=== PATIENT | male | born 1945 | race Caucasian/White ===

== ENCOUNTER 2017-11-26 13:47 | Observation (INO) | payer MEDICARE ==
[2017-11-26 14:27] LABS: ABS Basophils 0.1 10^3/ul (0-0.2); ABS Eosinophils 0 10^3/ul (0-0.6); ABS Lymphocytes 1.7 10^3/ul (1.0-4.8); ABS Monocytes 0.8 10^3/ul (0-0.8); ABS Neutrophils 7.2 10^3/ul (1.5-7.7); ABS Nucleated RBC 0 10^3/ul; Eosinophil % 0.5 % (0-6); Hematocrit 43 % (42-52); Hemoglobin 14.6 g/dl (14.0-18.0); Lymphocyte % 17.2 % (25-47); Mean Corpuscular HGB Conc 34 g/dl (31-36); Mean Corpuscular Hemoglobin 33 pg (27-31); Mean Corpuscular Volume 97 fL (80-94); Mean Platelet Volume 7.6 um3 (7.4-10.4); Nucleated Red Blood Cells % 0; Platelet Count 297 10^3/ul (150-450); Red Blood Count 4.37 10^6/ul (4.00-5.40); Red Cell Distribution Width 13 % (10.5-15); White Blood Count 9.8 10^3/ul (3.5-10.8)
[2017-11-26 14:37] LABS: INR 0.89 (0.77-1.02)
[2017-11-26 14:48] LABS: EGFR Non-African American 70.6 (>60)
--- NOTE | 2017-11-26 14:50 | RAD ---
INDICATION: Short of breath COMPARISON: None TECHNIQUE: An AP portable view obtained at 1420 hours is submitted. FINDINGS: Bones/Soft Tissues: There are no acute bony findings. Cardiomediastinal: The cardiomediastinal silhouette is normal. Lungs: There are no infiltrates. Pleura: There are no pleural effusions. Other: None IMPRESSION: NORMAL CHEST.
[2017-11-26] MEDS ORDERED: Al Hydrox/Mg Hydrox/Simet LIQ* 30 ML UDC PO PRN (16:57)
[2017-11-26] MEDS ORDERED: Acetaminophen TAB* 325 MG PO PRN (16:57)
[2017-11-26] MEDS ORDERED: Enoxaparin(*) 40 MG/0.4 ML SYR SUBCUT SCH (17:00)
[2017-11-26] MEDS ORDERED: Magnesium Sulfate 2 GM IV* 2 GM/50 ML BAG IVPB ONE (17:21)
--- NOTE | 2017-11-26 17:57 | ED ---
Milton Alas Tiffany, scribed for Damian Shearer MD on 11/26/17 at 1412 . Palpitations / Dysrhythmia - HPI Summary HPI Summary: 72 year old M referred from PMD to [facility] complains of heart fluttering since one week ago. Symptoms aggravated by walking. Symptoms alleviated by nothing. Patient reports dizziness, shortness of breath. Denies chest pain, chest pressure. - History of Current Complaint Chief Complaint: EDDysrhythmPalp Time Seen by Provider: 11/26/17 14:02 Hx Obtained From: Patient Onset/Duration: Lasting Weeks - 1, Still Present Aggravating: Other - walking Alleviating: Nothing - Allergy/Home Medications Allergies/Adverse Reactions: Allergies Allergy/AdvReac Type Severity Reaction Status Date / Time No Known Allergies Allergy Verified 11/26/17 13:51 Home Medications: Home Medications Aspirin EC TAB* [Ecotrin EC Low Dose 81 MG*] 81 mg PO DAILY 11/26/17 [History Confirmed 11/26/17] Felodipine (NF) [Plendil (NF)] 10 mg PO DAILY 11/26/17 [History Confirmed ] Losartan TAB* [Cozaar TAB*] 100 mg PO DAILY 11/26/17 [History Confirmed 11/26/17 ] Simvastatin TAB(NF) [Zocor(NF)] 20 mg PO DAILY 11/26/17 [History Confirmed 11/26] Ubidecarenone [Co Q-10] 300 mg PO DAILY 11/26/17 [History Confirmed 11/26/17] PMH/Surg Hx/FS Hx/Imm Hx Previously Healthy: No Cardiovascular History: Reports: Hx Hypercholesterolemia, Hx Hypertension Respiratory History: Denies: Hx Chronic Obstructive Pulmonary Disease (COPD) Sensory History: Denies: Hx Deafness EENT History: Denies: Hx Deafness - Surgical History Surgery Procedure, Year, and Place: torn meniscus bilateral knees Infectious Disease History: No Infectious Disease History: Denies: Traveled Outside the [place] in Last 30 Days - Family History Known Family History: Positive: Cardiac Disease - open heart surgery father, Diabetes - brother and grandmother Review of Systems Positive: Other - heart fluttering; NEGATIVE: chest pressure. Negative: Chest Pain Positive: Shortness Of Breath Neurological: Other - dizziness All Other Systems Reviewed And Are Negative: Yes Physical Exam - Summary Physical Exam Summary: Appearance: The patient is well-nourished in no acute distress and in no acute pain. Skin: The skin is warm and dry and skin color reflects adequate perfusion. HEENT: The head is normocephalic and atraumatic. The pupils are equal and reactive. The conjunctivae are clear and without drainage. Nares are patent and without drainage. Mouth reveals moist mucous membranes and the throat is without erythema and exudate. The external ears are intact. The ear canals are patent and without drainage. The tympanic membranes are intact. Neck: The neck is supple with full range of motion and non-tender. There are no carotid bruits. There is no neck vein distension. Respiratory: Chest is non-tender. Lungs are clear to auscultation and breath sounds are symmetrical and equal. Cardiovascular: Heart is regular rate and rhythm. There is no murmur or rub auscultated. There is no peripheral edema and pulses are symmetrical and equal. Abdomen: The abdomen is soft and non-tender. There are normal bowel sounds heard in all four quadrants and there is no organomegaly palpated. Musculoskeletal: There is no back tenderness noted. Extremities are non-tender with full range of motion. There is good capillary refill. There is no peripheral edema or calf tenderness elicited. Neurological: Patient is alert and oriented to person, place and time. The patient has symmetrical motor strength in all four extremities. Cranial nerves are grossly intact. Deep tendon reflexes are symmetrical and equal in all four extremities. Psychiatric: The patient has an appropriate affect and does not exhibit any anxiety or depression. Triage Information Reviewed: Yes Vital Signs On Initial Exam: Initial Vitals Temp Pulse Resp BP Pulse Ox 97.2 F 76 20 122/74 98 11/26/17 13:48 11/26/17 13:48 11/26/17 13:48 11/26/17 13:48 11/26/17 13:48 Vital Signs Reviewed: Yes Diagnostics - Vital Signs Vital Signs Temp Pulse Resp BP Pulse Ox 11/26/17 13:48 97.2 F 76 20 122/74 98 - Laboratory Lab Results: Lab Results 11/26/17 11/26/17 11/26/17 Range/Units 14:17 14:17 14:17 WBC 9.8 (3.5-10.8) 10^3/ul RBC 4.37 (4.00-5.40) 10^6/ul Hgb 14.6 (14.0-18.0) g/dl Hct 43 (42-52) % MCV 97 H (80-94) fL MCH 33 H (27-31) pg MCHC 34 (31-36) g/dl RDW 13 (10.5-15) % Plt Count 297 (150-450) 10^3/ul MPV 7.6 (7.4-10.4) um3 Neut % (Auto) 73.4 (38-83) % Lymph % (Auto) 17.2 L (25-47) % Benton % (Auto) 8.2 H (0-7) % Eos % (Auto) 0.5 (0-6) % Baso % (Auto) 0.7 (0-2) % Absolute Neuts (auto) 7.2 (1.5-7.7) 10^3/ul Absolute Lymphs (auto) 1.7 (1.0-4.8) 10^3/ul Absolute Monos (auto) 0.8 (0-0.8) 10^3/ul Absolute Eos (auto) 0 (0-0.6) 10^3/ul Absolute Basos (auto) 0.1 (0-0.2) 10^3/ul Absolute Nucleated RBC 0 10^3/ul Nucleated RBC % 0 INR (Anticoag Therapy) (0.77-1.02) D-Dimer, Quantitative (Less Than 230) ng/mL Sodium 137 (135-145) mmol/L Potassium 4.0 (3.5-5.0) mmol/L Chloride 103 (101-111) mmol/L Carbon Dioxide 22 (22-32) mmol/L Anion Gap 12 H (2-11) mmol/L BUN 15 (6-24) mg/dL Creatinine 1.04 (0.67-1.17) mg/dL Est GFR ( Amer) 85.4 (>60) Est GFR (Non-Af Amer) 70.6 (>60) BUN/Creatinine Ratio 14.4 (8-20) Glucose 127 H (70-100) mg/dL Lactic Acid 1.6 (0.5-2.0) mmol/L Calcium 9.3 (8.6-10.3) mg/dL Magnesium 1.6 L (1.9-2.7) mg/dL Total Bilirubin 0.60 (0.2-1.0) mg/dL AST 36 (13-39) U/L ALT 22 (7-52) U/L Alkaline Phosphatase 43 (34-104) U/L Troponin I 0.00 (<0.04) ng/mL C-Reactive Protein 1.26 (<8.01) mg/L B-Natriuretic Peptide ( - 100) pg/mL Total Protein 7.4 (6.4-8.9) g/dL Albumin 4.1 (3.2-5.2) g/dL Globulin 3.3 (2-4) g/dL Albumin/Globulin Ratio 1.2 (1-3) TSH 2.88 (0.34-5.60) mcIU/mL 11/26/17 11/26/17 Range/Units 14:17 14:17 WBC (3.5-10.8) 10^3/ul RBC (4.00-5.40) 10^6/ul Hgb (14.0-18.0) g/dl Hct (42-52) % MCV (80-94) fL MCH (27-31) pg MCHC (31-36) g/dl RDW (10.5-15) % Plt Count (150-450) 10^3/ul MPV (7.4-10.4) um3 Neut % (Auto) (38-83) % Lymph % (Auto) (25-47) % Benton % (Auto) (0-7) % Eos % (Auto) (0-6) % Baso % (Auto) (0-2) % Absolute Neuts (auto) (1.5-7.7) 10^3/ul Absolute Lymphs (auto) (1.0-4.8) 10^3/ul Absolute Monos (auto) (0-0.8) 10^3/ul Absolute Eos (auto) (0-0.6) 10^3/ul Absolute Basos (auto) (0-0.2) 10^3/ul Absolute Nucleated RBC 10^3/ul Nucleated RBC % INR (Anticoag Therapy) 0.89 (0.77-1.02) D-Dimer, Quantitative < 200 (Less Than 230) ng/mL Sodium (135-145) mmol/L Potassium (3.5-5.0) mmol/L Chloride (101-111) mmol/L Carbon Dioxide (22-32) mmol/L Anion Gap (2-11) mmol/L BUN (6-24) mg/dL Creatinine (0.67-1.17) mg/dL Est GFR ( Amer) (>60) Est GFR (Non-Af Amer) (>60) BUN/Creatinine Ratio (8-20) Glucose (70-100) mg/dL Lactic Acid (0.5-2.0) mmol/L Calcium (8.6-10.3) mg/dL Magnesium (1.9-2.7) mg/dL Total Bilirubin (0.2-1.0) mg/dL AST (13-39) U/L ALT (7-52) U/L Alkaline Phosphatase (34-104) U/L Troponin I (<0.04) ng/mL C-Reactive Protein (<8.01) mg/L B-Natriuretic Peptide 328 H ( - 100) pg/mL Total Protein (6.4-8.9) g/dL Albumin (3.2-5.2) g/dL Globulin (2-4) g/dL Albumin/Globulin Ratio (1-3) TSH (0.34-5.60) mcIU/mL Result Diagrams: 11/26/17 14:17 11/26/17 14:17 Lab Statement: Any lab studies that have been ordered have been reviewed, and results considered in the medical decision making process. - Radiology CXR Radiology Interpretation Completed By: Radiologist - NORMAL CHEST. ED physician has reviewed this report. - EKG 13:59 Cardiac Rate: NL - 92 bpm EKG Rhythm: Sinus Rhythm EKG Interpretation: Four beat run of bigeminy Course/Dx - Course Course Of Treatment: Mr. Barclay presented with complaints of shortness of breath with any kind of exertion and episodes of feeling like he might faint. He was nontoxic in appearance and his vitals were stable on arrival. He was kept on the monitor while labs were obtained and noted to go in and out of a controlled rate atrial fibrillation and also to have frequent ventricular ectopy at times including episodes of bigeminy. I'm concerned that he's been having dysrhythmias and consult with the hospitalist service for admission. - Diagnoses Provider Diagnoses: Near syncope, A-fib - Critical Care Time Critical Care Time: 30-74 min Discharge - Sign-Out/Discharge Documenting (check all that apply): Discharge/Admit/Transfer - Discharge Plan Condition: Stable Disposition: ADMITTED TO [facility] Referrals: Jaya Evans MD [Primary Care Provider] - - Billing Disposition and Condition Condition: STABLE Disposition: Admitted to [facility] The documentation as recorded by the Milton conner Tiffany accurately reflects the service I personally performed and the decisions made by Manfred mak Richard L, MD.
--- NOTE | 2017-11-26 19:16 | HP ---
CC: Dr. Evans * HISTORY AND PHYSICAL: DATE OF ADMISSION: 11/26/17 PROVIDER: Allison Love NP PRIMARY CARE PROVIDER: Dr. Evans. ATTENDING PHYSICIAN WHILE IN THE HOSPITAL: Dr. Rosey Goodson * (dictated by Allison Love NP). CHIEF COMPLAINT: Palpitations. HISTORY OF PRESENT ILLNESS: Mr. Barclay is a 72-year-old male, who carries a past medical history significant for hypertension and hyperlipidemia, who presented to the emergency room today for evaluation of increased shortness of breath, dizziness, and heart fluttering. The patient reports that he has been having episodes of heart fluttering and shortness of breath associated with dizziness and diaphoresis x1 week. The patient also reports that he has had increased shortness of breath x6 months and that he is very fatigued with exertion. He also reports over the past month, he has had intermittent episodes of chest pain that is sharp. He reports the pain as stabbing in nature and only lasts briefly. He does report that this is associated with exertion. He denies any recent fever or chills. Denies any chest pain at this time. He denies any cough, hemoptysis. He does report exertional shortness of breath. He denies any nausea, vomiting, diarrhea. Denies any abdominal pain. Denies any gross hematuria or dysuria. Denies any focal weakness or sensory loss. Denies any visual complaints. Denies any dysphagia. He does report chronic joint aches. Denies any rashes or lesions, any exposure to tick bites. He denies any psychosis or anxiety. He does report that he has difficulty sleeping at night. He states that he has difficulty staying asleep and that many nights he gets up and sleeps in his recliner due to his inability to stay asleep. He denies any orthopnea or nocturnal dyspnea. He does report that he does snore and has had episodes where he is awoke trying to catch his breath. While in the emergency room, the patient was monitored on telemetry. He had routine lab work drawn. He was found to have a brief episode of tachycardia, which could possibly be related to atrial fibrillation. Given his episodes of palpitation associated with dizziness and diaphoresis, we were asked to see and evaluate the patient for admission. PAST MEDICAL HISTORY: 1. Hypertension. 2. Hyperlipidemia. PAST SURGICAL HISTORY: 1. Bilateral knee meniscus repair. 2. Hemorrhoidectomy. 3. Tonsillectomy. HOME MEDICATIONS: Include: 1. Aspirin 81 mg p.o. daily. 2. CoQ10 300 mg p.o. daily. 3. Simvastatin 20 mg p.o. daily. 4. Losartan 100 mg p.o. daily. 5. Plendil 10 mg p.o. daily. ALLERGIES: No known drug allergies. FAMILY HISTORY: Father with a history of quadruple bypass surgery at age 55. Diabetes, brother and grandmother with a history of diabetes. Cancer, brother with a history of non-Hodgkin's lymphoma. SOCIAL HISTORY: The patient reports that he quit smoking approximately 5 years ago. Prior to that, he smoked a pack a day for approximately 25 to 30 years. He does report daily alcohol use of 6 ounces of hard liquor daily. Denies any illicit drug use. He currently works as a town employee. He is . Surrogate decision maker in the event he is unable to make his own decisions is his , Qi Barclay. Her phone number is [phone]. He is a full code. REVIEW OF SYSTEMS: There was no documented fever. There has been no significant weight change. There was no double vision. Denies any ear drainage. Denies any rhinorrhea. Denies any cough or congestion. He does report shortness of breath that is worse with exertion. He does report intermittent chest pain, but no chest pain at this time. He reports the chest pain is also worse with exertion. He denies any orthopnea or nocturnal dyspnea. Denies any abdominal pain, nausea, vomiting, or diarrhea. Denies any dysuria or urinary frequency. Denies any loss of consciousness. He denies any skin ulcerations or rashes. A review of 14 systems was completed and all others are negative. PHYSICAL EXAMINATION GENERAL: At this time, Mr. Barclay is a 72-year-old male who appears well, sitting on the stretcher in the emergency room. He does not appear to be in any acute distress. VITAL SIGNS: Blood pressure 140/89, heart rate is 76, respirations are 16, O2 saturation is 96%, temperature on admission was 97.2. HEENT: Head is atraumatic, normocephalic. Eyes: EOMs are intact. Sclerae anicteric and not pale. Oral mucosa appears to be moist. NECK: Supple. LUNGS: Clear to auscultation bilaterally. No wheezes, rales, or rhonchi. CARDIAC: S1, S2. Regular rate and rhythm. ABDOMEN: Soft, rounded, nontender, and nondistended. Bowel sounds are present x4. EXTREMITIES: Pulses are +2 throughout. He is able to move all 4 extremities with 5/5 strength. NEUROLOGIC: He is alert and oriented x3. Speech is clear. There are no focal deficits. SKIN: Intact. DIAGNOSTIC STUDIES/LAB DATA: WBCs are 9.8, RBCs 4.37, hemoglobin was 14.6, hematocrit was 43, platelet count was 297. INR was 0.89, D-dimer was less than 200. Sodium 137, potassium 4.0, chloride 103, carbon dioxide was 22, anion gap was 12, BUN was 15, creatinine 1.04, glucose was 127, lactic acid 1.6, calcium was 9.3, magnesium was 1.6. AST 36, ALT 22. Troponin was 0.00. C-reactive protein was 1.26. BNP was 328. TSH is pending at this time. EKG is sinus rhythm at a rate of 63. Chest x-ray, radiologist's impression: Normal chest. There are no pleural effusions. There are no infiltrates. ASSESSMENT AND PLAN: Mr. Barclay is a 72-year-old male patient, who presented to the emergency room with complaints of shortness of breath and palpitations with associated dizziness and diaphoresis. He will be admitted under observation for : 1. Palpitations. During his time in the emergency room, he was found to have a brief episode of tachycardia that is possibly associated with atrial fibrillation. We will continue to monitor him on telemetry. We will do a nuclear stress test exercise to further evaluate his complaint of chest pain as well as palpitations. He will be continued on aspirin 81 mg p.o. daily. We will monitor him on telemetry overnight. In the event he does have another episode of atrial fibrillation, we will obtain an EKG to confirm. His CHADS2- VASc score is 2 giving him a high risk of stroke. In the event he has subsequent episodes of atrial fibrillation, we would recommend placing the patient on anticoagulation. 2. Hypertension. We will continue on his losartan 100 mg p.o. daily and Plendil 10 mg p.o. daily. 3. Hypomagnesemia. I will replace his magnesium with magnesium 2 g IV and repeat a mag level in the morning. 4. Insomnia. The patient does have a history of snoring. He does report that he awakes nightly and is unable to sleep, states that he goes and sleeps in his recliner during the night. I suspect that he may have some underlying sleep apnea undiagnosed. This also may contribute to his arrhythmias and palpitations that he is feeling. I would recommend outpatient sleep study for further evaluation of possible sleep apnea. We will obtain overnight pulse oximetry desaturation study to evaluate for oxygen desaturation as a possible cause of his palpitations and arrhythmias. 5. FEN: The patient will be placed on a heart-healthy, decaf okay diet. He will be n.p.o. for breakfast for a nuclear stress test. 6. Code status: He is a full code. 7. DVT prophylaxis: I will place him on Lovenox 40 mg subcu q.24 hours. 8. Disposition: He will be placed on observation. TIME SPENT: Time spent on this admission was approximately 60 minutes, greater than half of that time was spent [id number] with the patient obtaining my history and physical, the other half of the time was spent going over my plan of care and implementing my plan of care. I discussed this with my attending, Dr. Rosey Goodson, and she is in agreement with my plan. ALLISON LOVE, BARBARA [id number]/CPS #: [id number] ANTONIO
[2017-11-27 05:54] LABS: ABS Basophils 0.1 10^3/ul (0-0.2); ABS Eosinophils 0.2 10^3/ul (0-0.6); ABS Lymphocytes 1.5 10^3/ul (1.0-4.8); ABS Monocytes 0.8 10^3/ul (0-0.8); ABS Neutrophils 5.4 10^3/ul (1.5-7.7); ABS Nucleated RBC 0 10^3/ul; Eosinophil % 2.8 % (0-6); Hematocrit 41 % (42-52); Hemoglobin 13.9 g/dl (14.0-18.0); Lymphocyte % 18.7 % (25-47); Mean Corpuscular HGB Conc 34 g/dl (31-36); Mean Corpuscular Hemoglobin 34 pg (27-31); Mean Corpuscular Volume 98 fL (80-94); Mean Platelet Volume 7.8 um3 (7.4-10.4); Nucleated Red Blood Cells % 0; Platelet Count 252 10^3/ul (150-450); Red Blood Count 4.15 10^6/ul (4.00-5.40); Red Cell Distribution Width 14 % (10.5-15)
[2017-11-27 06:18] LABS: EGFR Non-African American 73.9 (>60)
[2017-11-27] MEDS ORDERED: Aspirin EC TAB* 81 MG TAB.EC PO SCH (09:00)
[2017-11-27] MEDS ORDERED: Atorvastatin* 10 MG TAB PO SCH (09:00)
[2017-11-27] MEDS ORDERED: amLODIPine TAB* 5 MG PO SCH (09:00)
[2017-11-27] MEDS ORDERED: Losartan TAB* 25 MG PO SCH (09:00)
--- NOTE | 2017-11-27 10:43 | RAD ---
HISTORY: palpitations , Hypertension, hyperlipidemia, shortness of breath COMPARISONS: None TECHNIQUE: A 1 day stress/rest myocardial perfusion study was performed, with exercise stress. The exercise portion was performed using the Lavelle protocol, for a total METs of 7. The stress portion was monitored by Dr. Galeas. Gated SPECT imaging was performed, with CT-based attenuation correction DOSE: Stress: Technetium 99m tetrofosmin, 25.47 millicuries, injected at 9:05 AM on November 27, 2017 Rest: Technetium 99m tetrofosmin, 10.3 millicuries, injected at 7:15 AM on November 27, 2017 Pharmacologic agent: None FINDINGS: CARDIAC MONITORING: Peak heart rate of 1 56 bpm, 104% of predicted EF: 64% TID: 0.98 MOTION: Normal motion, with normal wall thickening. PERFUSION: There is physiologic apical thinning. There is no definite reversible or fixed perfusion defect. OTHER: None IMPRESSION: NO DEFINITE FIXED OR REVERSIBLE PERFUSION DEFECT. ASSESSMENT: LOW RISK. Based on imaging criteria from ACC/AHA 2002. Guideline Update for the Management of Patient's with Chronic Stable Angina, table 23. Noninvasive Risk Stratification.
--- NOTE | 2017-11-27 15:00 | ECHO ---
Patient: NELLI HARRISON [facility] Rec#: [id number] : 1945 Date: 11/27/2017 Age: 72y Height: 178 cm / 70.1 in Weight: 100 kg / 220.4 lbs Sex: M BSA: 2.18 Room#: 432 Admit Date#: 11/27/2017 Type: Inpatient Referring: Allison Love Reading: Glen Galeas MD International Tax Manager: Catherine Delgado RDCS,RDMS CC: Jaya Evans MD Transthoracic Echocardiogram Indication: Palpitations BP: 125/73 HR: 94 Rhythm: NSR Findings History: HTN, HLD Technical Comments: The study quality is good. Left Ventricle: The left ventricular chamber size is normal. Mild concentric left ventricular hypertrophy is observed. Basal interventricular septum shows moderate thickening. Left ventricular systolic function is at the lower limits of normal. The estimated ejection fraction is 50-55%. There is an E to A reversal in the mitral valve flow pattern suggestive of diastolic dysfunction. Left Atrium: The left atrium is slightly dilated. Right Ventricle: The right ventricular chamber size and systolic function are within normal limits. Right Atrium: The right atrium is slightly dilated. Aortic Valve: The aortic valve is trileaflet. Systolic excursion of the aortic valve is normal. There is aortic annular calcification. There is a trace of aortic regurgitation. There is no evidence of aortic stenosis. Mitral Valve: The mitral valve leaflets appear normal. There is no evidence of mitral regurgitation. There is no evidence of mitral stenosis. Tricuspid Valve: The tricuspid valve leaflets are normal. There is trace tricuspid regurgitation. Unable to estimate the right ventricular systolic pressure. Pulmonic Valve: There is no evidence of pulmonic valve thickening. There is no evidence of pulmonic regurgitation. Pericardium: There is no significant pericardial effusion. Aorta: The aortic root appears normal. There is no dilatation of the aortic arch. Pulmonary Artery: The main pulmonary artery appears normal. Venous: The inferior vena cava appears normal in size. There is a greater than 50% respiratory change in the inferior vena cava dimension. Conclusions Mild concentric left ventricular hypertrophy is observed. Left ventricular systolic function is at the lower limits of normal. The estimated ejection fraction is 50-55%. The right ventricular chamber size and systolic function are within normal limits. There is a trace of aortic regurgitation. There is no evidence of aortic stenosis. There is no evidence of mitral regurgitation. There is trace tricuspid regurgitation. Unable to estimate the right ventricular systolic pressure. There is no significant pericardial effusion. Measurements Name Value Normal Range RVIDd (AP) 2D 2.5 cm (0.9 - 2.6) RVDdMajor (2D) 2.8 cm (2.2 - 4.4) RAd ISD 4CH 5.1 cm (3.4 - 4.9) RA (A4C)W 4 cm (2.9 - 4.6) IVSd (2D) 1.5 cm (0.6 - 1) LVPWd (2D) 1.2 cm (0.6 - 1) LVIDd (2D) 5.3 cm (3.6 - 5.4) LVIDs (2D) 4.4 cm - LV FS (2D) 17 % (25 - 45) Aortic Annulus 2.3 cm (1.4 - 2.6) Ao root diameter (2D) 3.4 cm (2.1 - 3.5) Ascending Ao 3.4 cm (2.1 - 3.4) Aortic arch 3.3 cm (1.8 - 3.4) LA dimension (AP) 2D 3.8 cm (2.3 - 3.8) LAd ISD 4CH 5.6 cm (2.9 - 5.3) LA ISD 4CH W 4.8 cm (2.5 - 4.5) Name Value Normal Range LA ESV BP (A/L) index 31 ml/m2 - Name Value Normal Range MV E-wave Vmax 1 m/sec - MV deceleration time 290 msec - MV A-wave Vmax 0.9 m/sec - MV E:A ratio 0.6 ratio - LV septal e' Vmax 0.08 m/sec - LV lateral e' Vmax 0.06 m/sec - LV E:e' septal ratio 8.3 ratio - LV E:e' lateral ratio 6.8 ratio - Name Value Normal Range AV Vmax 1.4 m/sec - AV VTI 29 cm - AV peak gradient 8 mmHg - AV mean gradient 4 mmHg - LVOT Vmax 1 m/sec - LVOT VTI 21.6 cm - LVOT peak gradient 4 mmHg - LVOT mean gradient 2 mmHg - SHA Vmax 1 m/sec - Name Value Normal Range RAP 8 mmHg - IVC diameter 1.6 cm - Name Value Normal Range PV Vmax 0.7 m/sec - PV peak gradient 2 mmHg -
[2017-11-27 15:21] VITALS: BP 134/75
--- NOTE | 2017-11-27 15:38 | PN ---
Subjective Date of Service: 11/27/17 Interval History: Mr. Barclay denies any symptoms since admission. He specifically denies chest pain, palpations, SOB, nausea, or abdominal pain. He had no chest pain or palpations during his stress test. Objective Active Medications: Acetaminophen (Tylenol Tab*) 650 mg PO Q4H PRN Al Hydrox/Mg Hydrox/Simethicone (Maalox Plus*) 30 ml PO Q6H PRN Amlodipine Besylate (Norvasc Tab*) 10 mg PO DAILY [facility]; Protocol Aspirin (Aspirin Ec Tab*) 81 mg PO DAILY [facility] Atorvastatin Calcium (Lipitor*) 10 mg PO DAILY [facility] Enoxaparin Sodium (Lovenox(*)) 40 mg SUBCUT Q24H [facility] Losartan Potassium (Cozaar Tab*) 100 mg PO DAILY [facility] Vital Signs: Temp Pulse Resp BP Pulse Ox 98.2 F 66 24 134/75 98 11/27/17 15:13 11/27/17 15:13 11/27/17 15:13 11/27/17 15:13 11/27/17 15:13 Oxygen Devices in Use Now: None Result Diagrams: 11/27/17 05:32 11/27/17 05:32 Additional Lab and Data: . Assess/Plan/Problems-Billing Assessment: Mr. Barclay is a 72 yo male with a PMH of HTN and HLD who was admitted on 11/26/17 with palpitations and SOB. - Patient Problems (1) Palpitations Comment: - No arrhythmia noted on telemetry. - Patient up ambulating on the unit to elicit symptoms, but none noted. - Echo without evidence of atrial dilation that would predispose to afib. - Will need follow up with PCP for holter monitor. (2) SOB (shortness of breath) Comment: - Seem to be associated with palpitations per patient's recollection. - No evidence of arrhythmia, CHF, valvular abnormality, or ACS as per above. - Patient does have long history of smoking, though he quit 5 years ago. ? component of COPD, would recommend PFTs outpatient. Overnight pulse oximetry suggests a component of JITENDRA, likely mild. (3) Hypertension Comment: - BP well controlled. - Continue amlodipine and losartan. (4) Hyperlipidemia Comment: - Continue simvastatin at discharge. (5) DVT prophylaxis Comment: - Lovenox. (6) Full code status Comment: Status and Disposition: OBV. Discharge to home.
--- NOTE | 2017-11-27 21:10 | DS ---
CC: Dr. Evans* [facility] MEDICINE DISCHARGE SUMMARY: DATE OF ADMISSION: 11/26/17 DATE OF DISCHARGE: 11/27/17 PRIMARY CARE PHYSICIAN: Dr. Evans. ATTENDING PHYSICIAN: Denisse Lubin MD* (dictation provided by Qi Schroeder NP) . PRIMARY DIAGNOSES: 1. Palpitations and shortness of breath, unclear etiology. 2. Suspected undocumented atrial fibrillation. SECONDARY DIAGNOSES: 1. Hypertension. 2. Hyperlipidemia. PAST SURGICAL HISTORY: 1. Bilateral knee meniscus repair. 2. Hemorrhoidectomy. MEDICATIONS AT THE TIME OF DISCHARGE: 1. Aspirin 81 mg p.o. daily. 2. CoQ10 of 300 mg p.o. daily. 3. Simvastatin 20 mg p.o. daily. 4. Losartan 100 mg p.o. daily. 5. Felodipine 10 mg p.o. daily. 6. Magnesium oxide 400 mg p.o. daily (new medication). HOSPITAL COURSE: Mr. Barclay is a 72-year-old male with past medical history of hypertension and hyperlipidemia who presented to the hospital on 11/26/17 with concern for palpitations and shortness of breath. Please see the dictated H and P from Allison Love NP for complete details. In brief, the patient stated that he had had episodes of fluttering in his chest associated with sweating and shortness of breath for about a week. The patient and his also note that he has had worsening shortness of breath and increased fatigue with exertion over the past 6 months. He denied chest pain except for 1 episode in the past month. In the emergency room he had labs, which showed a troponin of 0.00. The remainder of his labs were unremarkable. He had a chest x-ray, which showed a normal chest x- ray. He had an EKG, which showed some bigeminy. No evidence of ischemia. Mr. Barclay was placed on observation in the hospital. He has been monitored on the telemetry unit throughout his stay and has had no evidence of arrhythmias. I have specifically asked him to ambulate multiple times this afternoon and he was unable to elicit the symptoms that brought him to the ED originally. Furthermore, he has had a stress test with Nuclear Medicine using exercise for the stress portion. It showed no definitive fixed or reversible perfusion defect, low risk. The patient states he had no chest pain or palpitations or significant shortness of breath with that activity. He also had a transthoracic echocardiogram showing ejection fraction of 50% to 55%, E/A reversal on the mitral valve flow pattern suggestive of diastolic dysfunction, no significant valvular abnormalities or pericardial effusion. Mr. Barclay is doing well. He has been asymptomatic since arrival. He has had 3 troponins, which were negative and a negative stress test and echocardiogram. His EKG showed no ischemia. I suspect that perhaps the patient does have some undocumented arrhythmia that could be contributing to his symptoms, but we were not able to capture that here during this hospitalization. I have recommended strongly that he follow up with his primary care physician, Dr. Evans, for consideration of Holter monitor placement. In addition, the patient notes an ongoing worsening fatigue and dyspnea on exertion for the past 6 months. He does have a history of smoking and he quit 5 years ago. I recommend that he consider pulmonary function testing as well. The only change to the medications was the addition of magnesium. The patient' s magnesium on arrival was 1.6, he received 2 g of magnesium sulfate and will now be on magnesium supplementation until he follows up with his primary care physician, Dr. Evans. DISPOSITION: To home. DIET: Low fat, low salt. ACTIVITY: As tolerated. FOLLOWUP PLANS: Please follow up with Dr. Evans regarding consideration of Holter monitor placement and possible PFTs. QI SCHROEDER NP [id number]/[facility] #: [id number] ANTONIO
== END 2017-11-27 17:21 | disposition home or self-care (01) ==
LOC: ED 13:47 → MEDTELE 16:57
PROVIDERS: ADMIT Internal Medicine; ATTEND Internal Medicine
DX: R00.2 Palpitations (principal); R06.02 Shortness of breath; I10 Essential (primary) hypertension; E83.42 Hypomagnesemia; E78.5 Hyperlipidemia, unspecified; G47.00 Insomnia, unspecified; I45.81 Long QT syndrome; I51.7 Cardiomegaly; Z79.82 Long term (current) use of aspirin; Z79.899 Other long term (current) drug therapy; Z87.891 Personal history of nicotine dependence; Z82.49 Family history of ischemic heart disease and other diseases of the circulatory system; Z83.3 Family history of diabetes mellitus
CPT/HCPCS: 36415; 71045; 78452; 80048; 80053; 80061; 83605; 83735; 83880; 84443; 84484; 85025; 85379; 85610; 86140; 93005; 93017; 93306; 94762; 96365; 96366; 96372; 99283; A9270-GY; A9502; G0378; J1650; J3475

== ENCOUNTER 2022-05-16 09:39 | Inpatient (IN) ==
[2022-05-16 10:22] LABS: ABS Basophils 0.1 10^3/ul (0-0.2); ABS Lymphocytes 1.2 10^3/ul (1.0-4.8); ABS Monocytes 1.2 10^3/ul (0-0.8); ABS Neutrophils 12.9 10^3/ul (1.5-7.7); Eosinophil % 0.1 %; Hematocrit 21 % (42-52); Hemoglobin 7.2 g/dL (14.0-18.0); Lymphocyte % 7.9 %; Mean Corpuscular HGB Conc 35 g/dL (31-36); Mean Corpuscular Hemoglobin 36 pg (27-31); Mean Corpuscular Volume 103 fL (80-94); Mean Platelet Volume 7.7 fL (7.4-10.4); Platelet Count 231 10^3/uL (150-450); Red Cell Distribution Width 13 % (10-15); White Blood Count 15.4 10^3/uL (3.5-10.8)
[2022-05-16 10:33] LABS: INR 1.13 (0.88-1.18)
[2022-05-16] MEDS ORDERED: Pantoprazole 80 mg in NS BAG 80 MG/250 ML BAG IV ONE (10:44)
[2022-05-16] MEDS ORDERED: Pantoprazole VIAL 40 MG VIAL IV ONE (10:47)
[2022-05-16 11:13] LABS: Potassium 4.3 mmol/L (3.5-5.0)
[2022-05-16 11:14] LABS: Albumin 3.5 g/dL (3.2-5.2); Albumin/Globulin Ratio 1.7 (1-3); C Reactive Protein 2.78 mg/L (<8.01); Calcium 8.3 mg/dL (8.6-10.3); Globulin 2.1 g/dL (2-4); Magnesium 1.6 mg/dL (1.9-2.7); Total Bilirubin 0.3 mg/dL (0.2-1.0); Total Protein 5.6 g/dL (6.4-8.9); eGFR CKD-EPI 71.6 (>60)
[2022-05-16] MEDS ORDERED: Magnesium Sulfate 2 gm BAG 2 GM/50 ML BAG IVPB ONE (11:45)
[2022-05-16] MEDS ORDERED: Thiamine 100 MG/ML 2 ml VIAL (200 mg) IM ONE (12:23)
[2022-05-16] MEDS ORDERED: Lorazepam PYXIS KEY PRN (12:40)
[2022-05-16] MEDS ORDERED: Lactated Ringers 1000 ml BAG 1,000 ML IV SCH (13:00)
[2022-05-16] MEDS ORDERED: LORazepam 2 mg VIAL 1 ml IV PUSH SCH (13:00)
[2022-05-16] MEDS ORDERED: Midazolam 5 mg/5 ml VIAL 1 mg/ml 5 ml VIAL (5 mg) ONE (13:41)
[2022-05-16] MEDS ORDERED: fentaNYL 100 mcg/2 ml 50 MCG/ML VIAL ONE (13:41)
[2022-05-16 14:26] LABS: Ferritin 134.5 ng/mL (24-336)
[2022-05-16 14:29] LABS: Folate 8.11 ng/mL (5.90-24.80)
[2022-05-16] MEDS: Pantoprazole 80 mg in NS BAG 80 MG/250 ML BAG IV SCH (20:00)
[2022-05-16 21:49] LABS: Hematocrit 22 % (42-52); Hemoglobin 7.3 g/dL (14.0-18.0)
[2022-05-17] MEDS: Pantoprazole 80 mg in NS BAG 80 MG/250 ML BAG IV SCH ×3 (04:23→23:11)
[2022-05-17 05:52] LABS: Hematocrit 22 % (42-52)
[2022-05-17 08:47] LABS: ABS Lymphocytes 1.1 10^3/ul (1.0-4.8); ABS Monocytes 1.1 10^3/ul (0-0.8); ABS Neutrophils 8.9 10^3/ul (1.5-7.7); Eosinophil % 0.3 %; Lymphocyte % 10.1 %; Mean Corpuscular HGB Conc 33 g/dL (31-36); Mean Corpuscular Hemoglobin 33 pg (27-31); Mean Corpuscular Volume 101 fL (80-94); Mean Platelet Volume 7.8 fL (7.4-10.4); Nucleated Red Blood Cells % 0.3; Platelet Count 184 10^3/uL (150-450); Red Blood Count 2.13 10^6 /uL (4.18-5.48); Red Cell Distribution Width 17 % (10-15); White Blood Count 11.2 10^3/uL (3.5-10.8)
[2022-05-17] MEDS: Multivitamins/Minerals TAB PO SCH (09:03)
[2022-05-17 12:19] LABS: ABS Basophils 0.1 10^3/ul (0-0.2); ABS Lymphocytes 1.3 10^3/ul (1.0-4.8); ABS Monocytes 1.1 10^3/ul (0-0.8); ABS Neutrophils 9.9 10^3/ul (1.5-7.7); Eosinophil % 0.2 %; Hematocrit 22 % (42-52); Hemoglobin 7.1 g/dL (14.0-18.0); Lymphocyte % 10.6 %; Mean Corpuscular HGB Conc 33 g/dL (31-36); Mean Corpuscular Hemoglobin 33 pg (27-31); Mean Corpuscular Volume 101 fL (80-94); Mean Platelet Volume 7.7 fL (7.4-10.4); Nucleated Red Blood Cells % 0.1; Platelet Count 212 10^3/uL (150-450); Red Blood Count 2.16 10^6 /uL (4.18-5.48); Red Cell Distribution Width 16 % (10-15); White Blood Count 12.4 10^3/uL (3.5-10.8)
[2022-05-17] MEDS ORDERED: Ferric Gluconate IV 250 MG in NS 0.9% 250 ml 200 ML IVPB ONE (19:30)
[2022-05-18 07:23] LABS: CO2 Carbon Dioxide 22 mmol/L (22-32); Calcium 7.8 mg/dL (8.6-10.3); Chloride 108 mmol/L (101-111); Magnesium 1.8 mg/dL (1.9-2.7); Sodium 140 mmol/L (135-145)
[2022-05-18 07:29] LABS: Blood Urea Nitrogen 17 mg/dL (6-24); Glucose 108 mg/dL (70-100); eGFR CKD-EPI 92.3 (>60)
[2022-05-18 07:32] LABS: Anion Gap 10 mmol/L (2-11)
[2022-05-18] MEDS ORDERED: Cyanocobalamin INJ 1,000 MCG/ML VIAL 1 ML VIAL IM ONE (07:34)
[2022-05-18] MEDS: Multivitamins/Minerals TAB PO SCH (08:02)
[2022-05-18 08:54] LABS: Hematocrit 20 % (42-52); Hemoglobin 6.6 g/dL (14.0-18.0); Mean Corpuscular HGB Conc 34 g/dL (31-36); Mean Corpuscular Hemoglobin 34 pg (27-31); Mean Corpuscular Volume 100 fL (80-94); Mean Platelet Volume 7.6 fL (7.4-10.4); Platelet Count 221 10^3/uL (150-450); Red Blood Count 1.95 10^6 /uL (4.18-5.48); Red Cell Distribution Width 16 % (10-15); White Blood Count 12.9 10^3/uL (3.5-10.8)
[2022-05-18] MEDS ORDERED: Magnesium Sulfate 2 gm BAG 2 GM/50 ML BAG IVPB ONE (09:00)
[2022-05-18] MEDS ORDERED: Lactated Ringers 1000 ml BAG 1,000 ML IV ONE (10:13)
[2022-05-18] MEDS: Pantoprazole 80 mg in NS BAG 80 MG/250 ML BAG IV SCH ×2 (10:44→20:53)
[2022-05-18 14:10] LABS: Hematocrit 22 % (42-52); Hemoglobin 7.3 g/dL (14.0-18.0)
[2022-05-18 20:26] LABS: Hematocrit 20 % (42-52); Hemoglobin 6.8 g/dL (14.0-18.0)
[2022-05-19 06:32] LABS: Hematocrit 22 % (42-52); Hemoglobin 7.5 g/dL (14.0-18.0); Mean Corpuscular HGB Conc 34 g/dL (31-36); Mean Corpuscular Hemoglobin 32 pg (27-31); Mean Corpuscular Volume 94 fL (80-94); Mean Platelet Volume 7.6 fL (7.4-10.4); Platelet Count 200 10^3/uL (150-450); Red Blood Count 2.37 10^6 /uL (4.18-5.48); Red Cell Distribution Width 19 % (10-15); White Blood Count 14.8 10^3/uL (3.5-10.8)
[2022-05-19] MEDS: Pantoprazole 80 mg in NS BAG 80 MG/250 ML BAG IV SCH ×2 (06:33→18:03)
[2022-05-19 06:49] LABS: Calcium 7.7 mg/dL (8.6-10.3); Potassium 3.5 mmol/L (3.5-5.0); eGFR CKD-EPI 91.9 (>60)
[2022-05-19 07:55] LABS: Magnesium 1.9 mg/dL (1.9-2.7)
[2022-05-19 09:12] LABS: C Reactive Protein 73.19 mg/L (<8.01)
[2022-05-19 10:22] LABS: Erythrocyte Sed Rate 36 mm/Hr (0-19)
[2022-05-19] MEDS: Multivitamins/Minerals TAB PO SCH (10:25)
[2022-05-19 11:17] LABS: Urine Appearance Clear; Urine Bilirubin Negative (Negative); Urine Blood Negative (Negative); Urine Color Yellow; Urine Glucose Negative (Negative); Urine Ketones Negative (Negative); Urine Nitrite Negative (Negative); Urine Protein Negative (Negative); Urine Specific Gravity 1.025 (1.005-1.030)
[2022-05-19] MEDS ORDERED: Lactated Ringers 1000 ml BAG 1,000 ML IV SCH (16:00)
[2022-05-19] MEDS ORDERED: Midazolam 5 mg/5 ml VIAL 1 mg/ml 5 ml VIAL (5 mg) ONE (16:52)
[2022-05-19] MEDS ORDERED: fentaNYL 100 mcg/2 ml 50 MCG/ML VIAL ONE (16:53)
[2022-05-19 18:53] LABS: Hematocrit 25 % (42-52); Hemoglobin 8.1 g/dL (14.0-18.0)
[2022-05-20] MEDS: Pantoprazole 80 mg in NS BAG 80 MG/250 ML BAG IV SCH (04:24)
[2022-05-20 07:13] LABS: Hematocrit 24 % (42-52); Hemoglobin 8.3 g/dL (14.0-18.0); Mean Corpuscular HGB Conc 35 g/dL (31-36); Mean Corpuscular Hemoglobin 34 pg (27-31); Mean Corpuscular Volume 96 fL (80-94); Mean Platelet Volume 8.3 fL (7.4-10.4); Platelet Count 230 10^3/uL (150-450); Red Blood Count 2.44 10^6 /uL (4.18-5.48); Red Cell Distribution Width 19 % (10-15); White Blood Count 13.5 10^3/uL (3.5-10.8)
[2022-05-20 07:29] LABS: Calcium 7.6 mg/dL (8.6-10.3); Potassium 3.5 mmol/L (3.5-5.0); eGFR CKD-EPI 95.3 (>60)
[2022-05-20 08:33] LABS: ABS Basophils 0.1 10^3/ul (0-0.2); ABS Eosinophils 0.2 10^3/ul (0-0.6); ABS Lymphocytes 1.5 10^3/ul (1.0-4.8); ABS Monocytes 2.1 10^3/ul (0-0.8); ABS Neutrophils 9.6 10^3/ul (1.5-7.7); Eosinophil % 1.8 %; Lymphocyte % 11.1 %; Nucleated Red Blood Cells % 0.2
[2022-05-20] MEDS: Multivitamins/Minerals TAB PO SCH (08:37)
[2022-05-20] MEDS ORDERED: KCL 20 MEQ/100 ML IVPREMIX 20 MEQ/100 ML BAG IV ONE (08:57)
[2022-05-20] MEDS ORDERED: ceFAZolin 2 GM PREMIX 2 GM/100 ML BAG IVPB SCH (15:00)
[2022-05-20] MEDS ORDERED: ceFAZolin 2 GM PREMIX 2 GM/50 ML BAG IVPB SCH (15:33)
[2022-05-20] MEDS: ceFAZolin 2 GM PREMIX 2 GM/50 ML BAG IVPB SCH ×2 (15:41→22:36)
[2022-05-21 07:24] LABS: Hematocrit 25 % (42-52); Hemoglobin 8.5 g/dL (14.0-18.0); Mean Corpuscular HGB Conc 35 g/dL (31-36); Mean Corpuscular Hemoglobin 32 pg (27-31); Mean Corpuscular Volume 93 fL (80-94); Mean Platelet Volume 7.5 fL (7.4-10.4); Platelet Count 251 10^3/uL (150-450); Red Blood Count 2.64 10^6 /uL (4.18-5.48); Red Cell Distribution Width 19 % (10-15); White Blood Count 11.6 10^3/uL (3.5-10.8)
[2022-05-21 07:34] LABS: ABS Basophils 0.1 10^3/ul (0-0.2); ABS Eosinophils 0.2 10^3/ul (0-0.6); ABS Lymphocytes 1.1 10^3/ul (1.0-4.8); ABS Monocytes 1.9 10^3/ul (0-0.8); ABS Neutrophils 8.3 10^3/ul (1.5-7.7); Eosinophil % 1.8 %; Lymphocyte % 9.8 %; Nucleated Red Blood Cells % 0.2
[2022-05-21 07:41] LABS: Calcium 7.9 mg/dL (8.6-10.3); Potassium 3.6 mmol/L (3.5-5.0); eGFR CKD-EPI 93.7 (>60)
[2022-05-21] MEDS: Multivitamins/Minerals TAB PO SCH (08:27)
[2022-05-21] MEDS: ceFAZolin 2 GM PREMIX 2 GM/50 ML BAG IVPB SCH ×2 (08:35→15:38)
[2022-05-21 12:00] VITALS: BP 139/66
== END 2022-05-22 06:10 | disposition home or self-care (01) | DRG 377 ==
LOC: EDHOLD 09:39 → ED 09:39 → SUATTDRO 05-17 11:35 → EDHOLD 05-17 11:59 → MED 05-17 12:59
PROVIDERS: ADMIT Internal Medicine; ATTEND Hospitalist